=== PATIENT | female | born 1955 | race Two or more races ===

== ENCOUNTER 2021-06-04 19:17 | Emergency (ER) | payer MEDICAID ==
[~2021-06-04] VITALS: Ht 157.5 cm; Wt 77.1 kg
[2021-06-04 19:23] VITALS: BP 124/74
[2021-06-04] MEDS ORDERED: IBUPROFEN 600 MG TABLET ONE (19:50)
[2021-06-04] MEDS ORDERED: IBUPROFEN 600 MG TABLET PO ONE (20:00)
[2021-06-04] MEDS ORDERED: PROM118S5 PO (20:12)
--- NOTE | 2021-06-04 21:00 | NUR ---
Patient discharged to home in stable condition. Written and verbal after care instructions given. Patient verbalizes understanding of instruction.
== END 2021-06-04 21:00 | disposition home or self-care (01) ==
LOC: ER 19:20
DX: U07.1 COVID-19 (principal); J12.82 Pneumonia due to coronavirus disease 2019; Z79.899 Other long term (current) drug therapy
CPT/HCPCS: 71045-TC